=== PATIENT | male | born 1945 | race Caucasian/White ===

== ENCOUNTER 2025-11-04 01:29 | Emergency (ER) | payer OTHER ==
[2025-11-04] MEDS: diphenhydrAMINE 50 MG/ML SDV IM ONE (01:37)
[2025-11-04] MEDS: Triamcinolone Acetonide 40 MG/ML 1 ML SDV INJECT ONE (01:38)
== END 2025-11-04 01:54 | disposition home or self-care (01) ==
LOC: LL.ED 01:29
DX: T78.19XA Other adverse food reactions, not elsewhere classified, initial encounter (principal); Z88.8 Allergy status to other drugs, medicaments and biological substances; Z79.82 Long term (current) use of aspirin; Z79.899 Other long term (current) drug therapy
CPT/HCPCS: 96372; 99282; 99283; J1200; J3301